=== PATIENT | male | born 1995 | race Caucasian/White ===

== ENCOUNTER 2017-11-01 15:59 | Emergency (ER) | payer BC, OTHER ==
[2017-11-01] MEDS ORDERED: HYDROcodone/Acetaminophen 5/325 mg Tablet ONE (16:17)
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
== END 2017-11-01 17:32 | disposition home or self-care (01) ==
LOC: ERS 15:59
DX: S82.101A Unspecified fracture of upper end of right tibia, initial encounter for closed fracture (principal); V29.9XXA Motorcycle rider (driver) (passenger) injured in unspecified traffic accident, initial encounter

== ENCOUNTER 2019-07-24 15:37 | Emergency (ER) | payer BC ==
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
[2019-07-24] MEDS ORDERED: Ketorolac Tromethamine 30 MG/ML VIAL ONE (16:26)
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
== END 2019-07-24 17:30 | disposition home or self-care (01) ==
LOC: ERS 15:37
DX: S62.164A Nondisplaced fracture of pisiform, right wrist, initial encounter for closed fracture (principal); S50.01XA Contusion of right elbow, initial encounter; S50.02XA Contusion of left elbow, initial encounter; V87.8XXA Person injured in other specified noncollision transport accidents involving motor vehicle (traffic), initial encounter
CPT/HCPCS: 25630; 70450; 71045; 72125; 96374; J1885; L0120